=== PATIENT | female | born 1995 | race Caucasian/White ===

== ENCOUNTER 2024-09-16 02:03 | Emergency (ER) | payer OTHER, SELFPAY ==
[2024-09-16 02:08] VITALS: BP 119/81
[2024-09-16 02:30] LABS: % Basophils 0.3 % (0-2); % Eosinophils 0.3 % (0-6); % Immature Granulocytes 0.2 % (0-0.5); % Lymphocytes 20.7 % (20.5-51.1); % Monocytes 6.4 % (1.7-9.3); % Neutrophils 72.1 % (42.2-75.2); Absolute Lymphocytes 1.9 10^3/uL (1.2-3.4); Absolute Monocytes 0.6 10^3/uL (0.1-0.6); Absolute Neutrophils 6.6 10^3/uL (1.4-6.5); Hematocrit 34.7 % (37.0-47.0); Hemoglobin 11.5 g/dL (12.0-16.0); Mean Corp Hgb Conc. 33.1 g/dL (33.0-37.0); Mean Corpuscular Hgb 25.1 pg (27.0-31.0); Mean Corpuscular Volume 75.6 fL (81.0-99.0); Mean Platelet Volume 10.7 fL (7.4-10.4); Nucleated Red Blood Cells % 0 %; Platelet Count 297 10^3/uL (130-400); Red Blood Cell Count 4.59 10^6/uL (4.20-5.40); Red Cell Dist. Width 14.5 % (11.5-14.5); White Blood Cell Count 9.2 10^3/uL (4.8-10.8)
[2024-09-16 05:17] VITALS: BP 95/62
--- NOTE | 2024-09-16 05:49 | ED.GENMED ---
History of Present Illness
General
Chief Complaint: Vaginal Bleeding
Source: patient
Exam Limitations: none
Time Seen by Provider: 09/16/24 04:46
Nursing documentation reviewed up to this point in time: agreed with except (Patient denies vaginal bleeding.)
History of Present Illness
History of Present Illness:
This is a 29-year-old woman 2 para 1-0-0-2. First day last menstrual period July 30. She believes she is approximately 6 weeks . 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 Plans to
deliver at [facility].. Tonight while in the shower she felt a pop in her vaginal region and then was concerned with a palpable bulge at her vagina. She was concerned that she could feel her uterus at the entrance to her vagina. She
adamantly denies vaginal bleeding, denies discharge, denies abdominal pain or cramping. She admits that she is quite anxious, worried about this .
She continues to deny pain nor vaginal bleeding. She currently denies vaginal fullness but admits that she is quite anxious.
She takes no medicines on a daily basis.
She has a 6-year-old daughter at home. No issues/complications with that . No previous miscarriages nor abortions.
Past History
Past History
ED Past Medical History: None
ED Past Surgical History: None
Social History
Tobacco: Non-smoker
Alcohol: None
Drug: None
Personal:
Living: with family
Family History
Family History: Other (Noncontributory)
Phy Exam
Physical Exam
Physical Exam:
GENERAL: 29-year-old woman appears her stated age, awake and alert, mildly anxious, easily communicative. is accompanying.
EYE: anicteric
NECK: Supple, nontender
ENT: oral mucosa is moist. No rhinorrhea.
CARDIAC: Regular rate and rhythm. no murmur.
LUNGS: Clear breath sounds bilaterally, no acute respiratory distress, no wheezes/rales/rhonchi
ABDOMEN: Soft, nondistended, without focal tenderness, no r/g, no cvat. normoactive BS.
: No vulvar edema nor masses. Speculum exam reveals scant white creamy vaginal discharge. No blood. Cervix is closed. Nontender. Uterus mildly enlarged. No adnexal masses or tenderness.
NEUROLOGICAL: Alert and oriented x3, no focal neuro deficits.
SKIN: Warm and dry, normal color, skin intact. No rash.
MUSCULOSKELETAL: No C/C/E. peripheral pulses are full and equal b/l. No palpable tenderness.
PSYCH: Normal and appropriate interaction.
Course
Orders/Labs/Results
Orders:
Orders
09/16/24 02:11
Pulse Ox/spot Check [RESP] Urgent
Quantity: 1
Special Instructions: ON ROOM AIR
09/16/24 02:18
Type+Screen Urgent
Beta HCG Quantitative Urgent
Is this a screen?: No
Complete Blood Count/With Diff Urgent
09/16/24 03:36
US 1st Trimester Urgent
Comment: 6 weeks gestation
Reason For Exam: vag, bleeding. viability
09/16/24 05:16
ABO2 Urgent
BBK Wristband Number:
Associate notified that ABO2 has been ordered: [id number]
Date: 09/16/24
Time: 02:30
Tool Polisher ID: [id number]
Abnormal Lab Results
09/16/24
02:18
Hgb 11.5 L g/dL
(12.0-16.0)
Hct 34.7 L %
(37.0-47.0)
MCV 75.6 L fL
(81.0-99.0)
MCH 25.1 L pg
(27.0-31.0)
MPV 10.7 H fL
(7.4-10.4)
Absolute Neuts (auto) 6.6 H 10^3/uL
(1.4-6.5)
09/16/24 02:18
Vital Signs
Initial and Last Documented VS:
Initial Vital Signs
Temp Pulse Resp BP Pulse Ox
98.6 F 93 14 119/81 99
09/16/24 02:08 09/16/24 02:08 09/16/24 02:08 09/16/24 02:08 09/16/24 02:08
Last Documented Vital Signs
Temp Pulse Resp BP Pulse Ox
98.4 F 87 16 95/62 99
09/16/24 05:17 09/16/24 05:17 09/16/24 05:17 09/16/24 05:17 09/16/24 05:17
MDM/Problems Addressed
Differential Diagnosis Includes:
Patient presents with concern for vaginal bulging, concerned that she could feel her uterus at her vaginal entrance.
Contrary to triage chief complaint, patient denies vaginal bleeding or discharge.
Speculum exam is unremarkable. Cervix is closed. No vaginal bleeding.
Labs are unremarkable.
hCG reassuring at 110,000.
Will check pelvic ultrasound.
*Radiology
Radiology exam reviewed: radiology read reviewed (Ultrasound reveals single IUP at 7 weeks 2 days. No subchorionic bleeding. Ovaries are unremarkable bilaterally.)
*Pulse Oximetry
Patient hypoxic: no
*Critical Care Note
Total Time (30-74mins, 75-104mins- exclusive of procedures): Not Applicable
Update Note
Update Note:
05:45
Ultrasound shows viable IUP at 7 weeks 2 days consistent with last menstrual period.
heart rate 158.
No subchorionic bleeding. No adnexal masses.
Patient continues to deny pain and has had no vaginal bleeding.
Recommend initiation of vitamins and follow-up with [facility] next week as already scheduled.
ED Attending Note
-
Portions of this chart may have been created with voice recognition software.� Occasional wrong word or��sound alike� substitutions may have occurred due to the inherent limitations of voice recognition software.
Discharge Plan
Departure
Patient Disposition: Home (Routine Discharge)
Date of Disposition: 09/16/24
Time of Disposition: 05:49
Patient with high blood pressure during this ER visit?: No
Condition: Good
Discharge Problem:
Viable IUP at 7 weeks gestation
Instructions: symptoms
Prescriptions:
New
Multi-DHA (algal oil) 27mg iron- 800 mcg-250 mg capsule
1 cap PO DAILY Qty: 90 3RF
Activity Restrictions/Additional Instructions:
Follow-up with your [facility] specialist next week as scheduled.
Interventions
Interventions:
*Risk Screen - Suicide Last Done: 09/16/24 02:08
*General Assessment Last Done: 09/16/24 02:08
*Neglect/Abuse Screening Last Done: 09/16/24 02:08
*ED- Fall Risk Assessment Last Done: 09/16/24 06:15
*ED COVID-19 Vaccine History Last Done: 09/16/24 06:15
*Nursing Disposition Last Done: 09/16/24 06:15
ED-Female Genitourinary Assessment Last Done: 09/16/24 03:14
Discharge Date and Time
Discharge Date/Time: 09/16/24 06:17
Print Language: GIBRALTARIAN
== END 2024-09-16 06:17 | disposition home or self-care (01) ==
LOC: EMR 02:03
PROVIDERS: EMERGENCY PHYSICIAN Emergency Medicine; FAMILY PHYSICIAN Internal Medicine Cardiovascular Disease
DX: N89.8 Other specified noninflammatory disorders of vagina (principal); Z3A.01 Less than 8 weeks gestation of pregnancy; F41.9 Anxiety disorder, unspecified
CPT/HCPCS: 99284; 76801; 84702; 85025; 86850; 86900; 86901